=== PATIENT | male | born 1980 | race Caucasian/White ===

== ENCOUNTER 2020-11-07 14:23 | Emergency (ER) | payer OTHER ==
[~2020-11-07 14:23] MED LIST: AUGMENTIN 875-1 EACH PO; BENTYL10 MG PO; CARAFATE1 GM PO; CYCLOBENZAPRINE10 MG PO; NORCO 5-325 TA1 EACH PO; PROTONIX 40MG T40 MG PO
[2020-11-07 15:23] LABS: BASOPHIL 0.5 % (0-2); EOSINOPHIL 2.4 % (0-5); HCT 45.1 % (42.0-52.0); HGB 15.1 g/dl (13.2-18.0); LYMPHOCYTE 28.7 % (15-48); MCH 28.9 pg (25.0-31.0); MCHC 33.5 g/dL (32.0-36.0); MCV 86.4 fL (78.0-100.0); MPV 10.7 fL (6.0-9.5); NRBC 0; PLT 307 K/uL (150-400); RBC 5.22 M/uL (4.70-6.00); RDW 11.9 % (11.5-14.0); WBC 7.5 K/uL (4.0-10.5)
[2020-11-07 15:37] LABS: BUN/CREAT RATIO (CALC) 7.3 RATIO; CREATININE 1.64 mg/dL (0.67-1.17); POTASSIUM 4.2 mmol/L (3.5-5.1)
[2020-11-07] MEDS ORDERED: PREDNISONE20 MG PO (16:30)
[2021-04-16] MEDS ORDERED: PERCOCET 5-3251 EACH PO (07:03)
== END 2020-11-07 16:58 | disposition home or self-care (01) ==
LOC: FER 14:23
PROVIDERS: Emergency Medicine
DX: M94.0 Chondrocostal junction syndrome [Tietze] (principal); N28.9 Disorder of kidney and ureter, unspecified; E11.9 Type 2 diabetes mellitus without complications
CPT/HCPCS: 36415; 71046; 80048; 84484; 85025; 85379; 93005

== ENCOUNTER 2021-03-07 06:50 | Emergency (ER) | payer OTHER ==
[~2021-03-07 06:50] MED LIST changes: +PREDNISONE20 MG PO
[2021-03-07] MEDS ORDERED: MEDROL 4MG DOSEP4 MG PO (07:43)
[2021-03-07] MEDS ORDERED: NORCO 5-325 TA1 EACH PO (07:43)
[2021-04-16] MEDS ORDERED: PERCOCET 5-3251 EACH PO (07:03)
== END 2021-03-07 07:58 | disposition home or self-care (01) ==
LOC: FER 06:50
DX: S46.011A Strain of muscle(s) and tendon(s) of the rotator cuff of right shoulder, initial encounter (principal); F17.200 Nicotine dependence, unspecified, uncomplicated; W19.XXXA Unspecified fall, initial encounter; Y92.89 Other specified places as the place of occurrence of the external cause; Y99.0 Civilian activity done for income or pay
CPT/HCPCS: 73020

== ENCOUNTER → 2021-04-16 | Day surgery (SDC) | payer OTHER ==
[~2021-04-16] VITALS: Ht 175.3 cm; Wt 81.6 kg
[~2021-04-16] MED LIST changes: +MEDROL 4MG DOSEP4 MG PO; +PERCOCET 5-3251 EACH PO
[2021-04-16 11:49] LABS: HGB 15.3 g/dl (13.2-18.0); MCH 30.2 pg (25.0-31.0); MCHC 34.8 g/dL (32.0-36.0); MCV 86.8 fL (78.0-100.0); MPV 10.9 fL (6.0-9.5); RBC 5.07 M/uL (4.70-6.00); RDW 12.5 % (11.5-14.0); WBC 5.8 K/uL (4.0-10.5)
[2021-04-16 12:44] LABS: CREATININE 0.8 mg/dL (0.67-1.17); POTASSIUM 3.8 mmol/L (3.5-5.1)
[2021-04-16 12:45] LABS: ALBUMIN 4.2 g/dL (3.4-5.0); BILIRUBIN - TOTAL 0.5 mg/dL (0.2-1.0); GLOBULIN (CALCULATION) 3.4 g/dL; TOTAL PROTEIN 7.6 g/dL (6.4-8.2)
== END | disposition home or self-care (01) ==
LOC: FAS 11:06
PROVIDERS: Orthopaedic Surgery
DX: M75.111 Incomplete rotator cuff tear or rupture of right shoulder, not specified as traumatic (principal); M75.51 Bursitis of right shoulder; M25.811 Other specified joint disorders, right shoulder; Z79.891 Long term (current) use of opiate analgesic
CPT/HCPCS: 36415; 80053; J0171; J0690; J1100; J1885; J2250; J2405; J2704; J2795; J7120